=== PATIENT | male | born 1980 | race African-American/Black ===

== ENCOUNTER 2018-12-26 21:35 | Emergency (ER) | payer MEDICARE, MEDICAID | END 2018-12-27 03:09 | disposition home or self-care (01) | LOC: E/R 21:35 | DX: S00.512A Abrasion of oral cavity, initial encounter (principal); W25.XXXA Contact with sharp glass, initial encounter; Y92.9 Unspecified place or not applicable | CPT/HCPCS: 70360; 71046; 99284-25 ==